=== PATIENT | female | born 1990 | race Caucasian/White ===

== ENCOUNTER 2018-10-25 19:00 | Inpatient (IN) | payer MEDICAID ==
[~2018-10-25] VITALS: Ht 162.6 cm; Wt 85.8 kg
--- NOTE | 2018-10-25 18:40 | NUR ---
SARAH OWEN presented to unit via AMBULATORY from ED, accompanied by S/O, with c/o INDUCTION. SARAH OWEN weighed, gowned, voided, and to bed. EFHM and TOCO applied, VS taken. SARAH OWEN oriented to bed controls, call light, TV, heat, and A/C controls.
[2018-10-25 19:15] VITALS: BP 129/84
[2018-10-25] MEDS ORDERED: D5 LR IV SOLUTION 1,000 ML IV ONE (19:16)
[2018-10-25] MEDS ORDERED: LACTATED RINGERS 1,000 ML IV SCH (19:51)
[2018-10-25] MEDS ORDERED: MINERAL OIL CONCENTRATE 99.9% 15 ML UDC TOP PRN (20:00)
[2018-10-25] MEDS ORDERED: MISOPROSTOL 100 MCG (CYTOTEC) TAB PV SCH (20:00)
[2018-10-25] MEDS ORDERED: TERBUTALINE INJ 1 MG/ML (BRETHINE) AMP SC PRN (20:00)
[2018-10-25] MEDS: D5 LR IV SOLUTION 1,000 ML IV SCH (20:14)
[2018-10-25 20:28] LABS: BASOPHILS % (AUTO) 0 % (0-10); EOSINOPHILS # (AUTO) 0.2 10^3/uL (0.0-0.3); EOSINOPHILS % (AUTO) 2 % (0-10); HEMATOCRIT 32 % (35-52); HEMOGLOBIN 10.7 G/DL (11.5-16.0); LYMPHOCYTES # (AUTO) 2.1 X 10^3 (1.0-4.0); LYMPHOCYTES % (AUTO) 20 % (12-44); MEAN CORPUSCULAR HEMOGLOBIN 30 PG (25-34); MEAN CORPUSCULAR HGB CONC 34 G/DL (32-36); MEAN CORPUSCULAR VOLUME 89 FL (80-99); MEAN PLATELET VOLUME 10.9 FL (7.4-10.4); MONOCYTES # (AUTO) 0.7 X 10^3 (0.0-1.0); MONOCYTES % (AUTO) 7 % (0-12); NEUTROPHILS # (AUTO) 7.4 X 10^3 (1.8-7.8); NEUTROPHILS % (AUTO) 71 % (42-75); PLATELET COUNT 184 10^3/uL (130-400); RED CELL DISTRIBUTION WIDTH 13.2 % (10.0-14.5); WHITE BLOOD COUNT 10.4 10^3/uL (4.3-11.0)
[2018-10-25 20:52] LABS: BUN/CREATININE RATIO 11; CALCIUM 9.1 MG/DL (8.5-10.1); CARBON DIOXIDE 17 MMOL/L (21-32); CHLORIDE 109 MMOL/L (98-107); CREATININE SERUM 0.71 MG/DL (0.60-1.30); GFR ESTIMATED > 60; GLUCOSE 114 MG/DL (70-105); MAGNESIUM 1.6 MG/DL (1.8-2.4); POTASSIUM 3.4 MMOL/L (3.6-5.0); SODIUM 137 MMOL/L (135-145)
[2018-10-25 21:00] VITALS: BP 111/75
[2018-10-25 21:30] VITALS: BP 139/83
[2018-10-25 22:30] VITALS: BP 114/69
[2018-10-25 23:30] VITALS: BP 111/69
[2018-10-26] VITALS (64 sets, daily range): BP systolic 105–149; BP diastolic 55–90
[2018-10-26] MEDS ORDERED: fentaNYL INJECTION 100 MCG/2 ML AMP ONE ×2 (03:18→08:21)
[2018-10-26] MEDS: D5 LR IV SOLUTION 1,000 ML IV SCH ×2 (03:27→12:30)
[2018-10-26] MEDS: fentaNYL INJECTION 100 MCG/2 ML AMP IVP PRN ×2 (03:28→06:07)
[2018-10-26] MEDS ORDERED: OXYTOCIN/NORMAL SALINE 500 ML IV SCH ×2 (05:00→16:25)
[2018-10-26] MEDS ORDERED: LEVO50TA6 PO (07:00)
[2018-10-26] MEDS ORDERED: PREN-8 PO (07:01)
[2018-10-26] MEDS ORDERED: LACTATED RINGERS 1,000 ML IV ONE (07:05)
[2018-10-26] MEDS ORDERED: SUFENTA 0.6MCG/ML BUPIVA 0.125 100 ML ONE (07:57)
[2018-10-26] MEDS ORDERED: BUPIVACAINE 0.25% 30 ML (SENSORCAINE) VIAL ONE (08:20)
--- NOTE | 2018-10-26 13:10 | Labor Progress Note ---
Labor Progress Note Labor Progress Note Date Seen by Provider: Oct 26, 2018 Time Seen by Provider: 10:00 AROM Barbara @ 1002 SVE: 75/-1 Plan: Continue with expectant management Epidural for pain control Vitals - Labs Vital Signs - I&O Vital Signs Date Time Temp Pulse Resp B/P (MAP) Pulse Ox O2 Delivery O2 Flow Rate FiO2 10/26/18 12:30 81 18 126/79 (95) 99 Room Air 10/26/18 12:15 83 18 130/80 (97) 100 Room Air 10/26/18 12:00 79 18 126/76 (93) 96 Room Air 10/26/18 11:45 67 18 123/72 (89) 96 Room Air 10/26/18 11:30 63 18 134/90 (105) 100 Room Air 10/26/18 11:15 68 18 129/85 (100) 100 Room Air 10/26/18 11:00 68 18 116/72 (87) 99 Room Air 10/26/18 10:45 66 18 124/85 (98) 99 Room Air 10/26/18 10:30 61 18 116/76 (89) 99 Room Air 10/26/18 10:15 65 18 119/77 (91) 97 Room Air 10/26/18 10:00 72 18 113/67 (82) 99 Room Air 10/26/18 09:45 65 18 115/66 (82) 98 Room Air 10/26/18 09:30 62 18 112/71 (85) 97 Room Air 10/26/18 09:25 65 18 110/71 (84) 98 Room Air 10/26/18 09:20 65 16 112/73 (86) 97 Room Air 10/26/18 09:15 70 16 110/67 (81) 96 Room Air 10/26/18 09:10 72 16 111/66 (81) 96 Room Air 10/26/18 09:05 77 18 124/68 (86) 97 Room Air 10/26/18 09:00 78 18 115/69 (84) 97 Room Air 10/26/18 08:55 77 18 117/67 (84) 97 Room Air 10/26/18 08:50 72 18 121/65 (83) 97 Room Air 10/26/18 08:45 76 18 126/74 (91) 98 Room Air 10/26/18 08:40 74 18 124/75 (91) 98 Room Air 10/26/18 08:30 105 18 135/81 (99) 98 Room Air 10/26/18 08:15 98.1 76 18 125/76 (92) 100 Room Air 10/26/18 08:00 71 18 138/82 (100) 99 Room Air 10/26/18 07:45 71 18 138/82 (100) 99 Room Air 10/26/18 07:15 77 18 130/83 (99) 99 Room Air 10/26/18 07:00 75 18 119/84 (96) 99 Room Air 10/26/18 06:45 66 18 120/74 (89) 98 Room Air 10/26/18 06:30 70 18 128/71 (90) 99 Room Air 10/26/18 06:15 86 18 130/75 (93) 99 Room Air 10/26/18 06:00 72 18 127/84 (98) 99 Room Air 10/26/18 05:45 86 18 120/83 (95) 100 Room Air 10/26/18 05:30 59 18 115/74 (88) 99 Room Air 10/26/18 05:15 64 18 125/77 (93) 99 Room Air 10/26/18 05:00 67 18 129/88 (102) 99 Room Air 10/26/18 04:40 97.9 64 18 124/77 (93) Room Air 10/26/18 03:55 78 18 123/75 (91) Room Air 10/26/18 03:10 75 18 135/84 (101) Room Air 10/26/18 02:30 74 18 122/78 (93) Room Air 10/26/18 01:40 63 18 111/70 (84) Room Air 10/26/18 00:55 98.0 66 18 127/76 (93) Room Air 10/26/18 00:10 66 18 120/75 (90) Room Air 10/25/18 23:30 90 18 111/69 (83) Room Air 10/25/18 22:30 67 18 114/69 (84) Room Air 10/25/18 21:30 77 18 139/83 (101) Room Air 10/25/18 21:00 74 18 111/75 (87) Room Air 10/25/18 19:15 98.3 83 18 129/84 (99) Room Air Labs Laboratory Tests 10/25/18 20:06: White Blood Count 10.4, Red Blood Count 3.58L, Hemoglobin 10.7L, Hematocrit 32L, Mean Corpuscular Volume 89, Mean Corpuscular Hemoglobin 30, Mean Corpuscular Hemoglobin Concent 34, Red Cell Distribution Width 13.2, Platelet Count 184, Mean Platelet Volume 10.9H, Neutrophils (%) (Auto) 71, Lymphocytes (%) (Auto) 20, Monocytes (%) (Auto) 7, Eosinophils (%) (Auto) 2, Basophils (%) (Auto) 0, Neutrophils # (Auto) 7.4, Lymphocytes # (Auto) 2.1, Monocytes # (Auto) 0.7, Eosinophils # (Auto) 0.2, Basophils # (Auto) 0.0, Sodium Level 137, Potassium Level 3.4L, Chloride Level 109H, Carbon Dioxide Level 17L, Anion Gap 11, Blood Urea Nitrogen 8, Creatinine 0.71, Estimat Glomerular Filtration Rate > 60, BUN/Creatinine Ratio 11, Glucose Level 114H, Calcium Level 9.1, Magnesium Level 1.6L SUSHMA CARL MD Oct 26, 2018 13:10
[2018-10-26] MEDS ORDERED: PROMETHAZINE INJ 25 MG/ML (PHENERGAN) AMP ONE (14:57)
[2018-10-26] MEDS ORDERED: PROMETHAZINE INJ 25 MG/ML (PHENERGAN) AMP IVP NR (15:00)
--- NOTE | 2018-10-26 15:00 | History & Physical-OB ---
OB - Chief Complaint & HPI Date/Time Date of Admission: Date of Admission: Oct 25, 2018 at 19:00 Date seen by a Provider: Oct 26, 2018 Time Seen by a Provider: 12:00 Chief Complaint/History OB-Reason for Admission/Chief: Induction of Labor Hx : 2 Hx Para: 1 Expected Date of Delivery: Nov 08, 2018 Gestational Age in Weeks: 38 Gestational Age in Days: 1 Indication for induction: medical complication Admission Nurse Assessment Rev: Yes Allergies and Home Medications Allergies Coded Allergies: No Known Drug Allergies (Unverified , 10/25/18) Home Medications Levothyroxine Sodium 50 Mcg Tablet, 50 MCG PO DAILY, (Reported) Patient Home Medication List Home Medication List Reviewed: Yes OB - History Hx of Present Care: Yes Ultrasounds: Normal mid trimester US Obstetrical Complications: None Medical Complications: Cardiovascular (SVT ) Delivery History Adverse Rxn to Tranfusion: No Patient Past Medical History previously healthy;except for SVT during first that had to be cardioverted in ED. Social History/Family History Alcohol Use: Denies Use Recreational Drug Use: No OB - Admission Exam Physical Exam Vitals: Vital Signs 10/26/18 10/26/18 08:15 13:45 Temp 98.1 Pulse 82 Resp 18 B/P (MAP) 109/55 (73) Pulse Ox 99 O2 Delivery Room Air HEENT: NCAT Heart: Rhythm Normal Lungs: Clear Abdomen: Gravid Extremities: Normal Reflexes: Normal Cervical Dilatation: 9cm Effacement: 100% Station: 0 Membranes: Ruptured Amniotic Fluid: Clear Heart Rate: 140's Accelerations: No Accelerations Decelerations: Late Decelarations Short Term Variability: Present Skilled Nursing Variability: Average (6-25) Contractions on Admission: < 5 Minutes Apart Labs Laboratory Tests Test 10/25/18 20:06 Range/Units White Blood Count 10.4 4.3-11.0 10^3/uL Red Blood Count 3.58 L 4.35-5.85 10^6/uL Hemoglobin 10.7 L 11.5-16.0 G/DL Hematocrit 32 L 35-52 % Mean Corpuscular Volume 89 80-99 FL Mean Corpuscular Hemoglobin 30 25-34 PG Mean Corpuscular Hemoglobin Concent 34 32-36 G/DL Red Cell Distribution Width 13.2 10.0-14.5 % Platelet Count 184 130-400 10^3/uL Mean Platelet Volume 10.9 H 7.4-10.4 FL Neutrophils (%) (Auto) 71 42-75 % Lymphocytes (%) (Auto) 20 12-44 % Monocytes (%) (Auto) 7 0-12 % Eosinophils (%) (Auto) 2 0-10 % Basophils (%) (Auto) 0 0-10 % Neutrophils # (Auto) 7.4 1.8-7.8 X 10^3 Lymphocytes # (Auto) 2.1 1.0-4.0 X 10^3 Monocytes # (Auto) 0.7 0.0-1.0 X 10^3 Eosinophils # (Auto) 0.2 0.0-0.3 10^3/uL Basophils # (Auto) 0.0 0.0-0.1 10^3/uL Sodium Level 137 135-145 MMOL/L Potassium Level 3.4 L 3.6-5.0 MMOL/L Chloride Level 109 H 98-107 MMOL/L Carbon Dioxide Level 17 L 21-32 MMOL/L Anion Gap 11 5-14 MMOL/L Blood Urea Nitrogen 8 7-18 MG/DL Creatinine 0.71 0.60-1.30 MG/DL Estimat Glomerular Filtration Rate > 60 BUN/Creatinine Ratio 11 Glucose Level 114 H 70-105 MG/DL Calcium Level 9.1 8.5-10.1 MG/DL Magnesium Level 1.6 L 1.8-2.4 MG/DL OB - Assessment/Plan/Diagnosis Assessment Assessment: induction of labor Admission Dx Induction of labor at 38 weeks Admission Status: Inpatient Order (span 2 midnights) Reason for Inpatient Admission: Induction of labor at 38 1/7 wga for SVT. Plan Plan: Induction Induction Method: per Pitocin Protocol GINI CARTER MD Oct 26, 2018 15:00
--- NOTE | 2018-10-26 16:13 | NUR ---
spontaneous vaginal delivery of intact placenta by dr green. pitocin increased to 999ml/hr per dr lutz. dr green performing fundal massage. EBL [address] green.
--- NOTE | 2018-10-26 16:16 | NUR ---
bottom of labor bed replaced assisted out of stirrups. s/o at bedside.
--- NOTE | 2018-10-26 16:20 | NUR ---
pericare performed by this RN , june to perineum. 1621 epidural out tip intact. 1625 fundal massage performed ffu/1-2 moderate flow no clots expressed. 1627 repositioned to high fowlers. 1629 new gown on. reviewed diet order.
--- NOTE | 2018-10-26 16:25 | OB Labor & Delivery Record ---
Vag Delivery Note Vag Delivery Note Date of Delivery: 10/26/18 Preoperative Diagnosis: Gina Meyers is a (27 /Para 2 / 1, Gestational Age (wks)38with [1 day] Postoperative Diagnosis: Same Surgeon: GINI CARTER Swatch Paster: [] Anesthesia: [epidural] Delivery Type: [] Findings: [] Viable [male] infant, apgars [], weight [6 pounds 15 ounces] Lacerations: Intact placenta with 3 vessel cord. No nuchal cord, body cord or shoulder dystocia Estimated Blood Loss: [350] ml Complications: None Condition: Stable Description of Procedure: The patient is a 27 year old female who presented [for induction of labor]. She was admitted and informed consent was obtained. Her labor course was remarkable for [delayed 1st stage] She progressed to complete dilatation and began to push. She was then set up for delivery. The 's head was delivered atraumatically in the [OA] position. The shoulders and remainder of the infant's body were then delivered without difficulty. Upon delivery, the head was held below the level of the perineum and the mouth and nares were bulb suctioned. The cord was doubly clamped and cut after 60 seconds and placed on maternal abdomen. An intact placenta with 3-vessel cord delivered via Mario and there was found to be minimal bleeding.~ Vigorous fundal massage was performed and the fundus was found to be firm. IV oxytocin was given. Examination of the vagina and perineum revealed no lacerations. Following the repair, sponge, instrument and needle counts were correct. Mom and baby were both in stable condition in the labor suite. Vitals - Labs Vital Signs - I&O Vital Signs Date Time Temp Pulse Resp B/P (MAP) Pulse Ox O2 Delivery O2 Flow Rate FiO2 10/26/18 15:15 64 18 148/74 (98) Room Air 10/26/18 15:00 75 18 131/78 (95) 99 Room Air 10/26/18 14:45 85 18 119/82 (94) 99 Room Air 10/26/18 14:30 78 18 122/76 (91) 99 Room Air 10/26/18 14:15 78 18 125/82 (96) 100 Room Air 10/26/18 14:00 99.4 87 18 118/70 (86) 99 Room Air 10/26/18 13:45 82 18 109/55 (73) 99 Room Air 10/26/18 13:30 76 18 108/55 (72) 99 Room Air 10/26/18 13:15 88 18 114/60 (78) 99 Room Air 10/26/18 13:00 84 18 117/87 (97) 98 Room Air 10/26/18 12:45 66 18 123/81 (95) 99 Room Air 10/26/18 12:30 81 18 126/79 (95) 99 Room Air 10/26/18 12:15 83 18 130/80 (97) 100 Room Air 10/26/18 12:00 79 18 126/76 (93) 96 Room Air 10/26/18 11:45 67 18 123/72 (89) 96 Room Air 10/26/18 11:30 63 18 134/90 (105) 100 Room Air 10/26/18 11:15 68 18 129/85 (100) 100 Room Air 10/26/18 11:00 68 18 116/72 (87) 99 Room Air 10/26/18 10:45 66 18 124/85 (98) 99 Room Air 10/26/18 10:30 61 18 116/76 (89) 99 Room Air 10/26/18 10:15 65 18 119/77 (91) 97 Room Air 10/26/18 10:00 72 18 113/67 (82) 99 Room Air 10/26/18 09:45 65 18 115/66 (82) 98 Room Air 10/26/18 09:30 62 18 112/71 (85) 97 Room Air 10/26/18 09:25 65 18 110/71 (84) 98 Room Air 10/26/18 09:20 65 16 112/73 (86) 97 Room Air 10/26/18 09:15 70 16 110/67 (81) 96 Room Air 10/26/18 09:10 72 16 111/66 (81) 96 Room Air 10/26/18 09:05 77 18 124/68 (86) 97 Room Air 10/26/18 09:00 78 18 115/69 (84) 97 Room Air 10/26/18 08:55 77 18 117/67 (84) 97 Room Air 10/26/18 08:50 72 18 121/65 (83) 97 Room Air 10/26/18 08:45 76 18 126/74 (91) 98 Room Air 10/26/18 08:40 74 18 124/75 (91) 98 Room Air 10/26/18 08:30 105 18 135/81 (99) 98 Room Air 10/26/18 08:15 98.1 76 18 125/76 (92) 100 Room Air 10/26/18 08:00 71 18 138/82 (100) 99 Room Air 10/26/18 07:45 71 18 138/82 (100) 99 Room Air 10/26/18 07:15 77 18 130/83 (99) 99 Room Air 10/26/18 07:00 75 18 119/84 (96) 99 Room Air 10/26/18 06:45 66 18 120/74 (89) 98 Room Air 10/26/18 06:30 70 18 128/71 (90) 99 Room Air 10/26/18 06:15 86 18 130/75 (93) 99 Room Air 10/26/18 06:00 72 18 127/84 (98) 99 Room Air 10/26/18 05:45 86 18 120/83 (95) 100 Room Air 10/26/18 05:30 59 18 115/74 (88) 99 Room Air 10/26/18 05:15 64 18 125/77 (93) 99 Room Air 10/26/18 05:00 67 18 129/88 (102) 99 Room Air 10/26/18 04:40 97.9 64 18 124/77 (93) Room Air 10/26/18 03:55 78 18 123/75 (91) Room Air 10/26/18 03:10 75 18 135/84 (101) Room Air 10/26/18 02:30 74 18 122/78 (93) Room Air 10/26/18 01:40 63 18 111/70 (84) Room Air 10/26/18 00:55 98.0 66 18 127/76 (93) Room Air 10/26/18 00:10 66 18 120/75 (90) Room Air 10/25/18 23:30 90 18 111/69 (83) Room Air 10/25/18 22:30 67 18 114/69 (84) Room Air 10/25/18 21:30 77 18 139/83 (101) Room Air 10/25/18 21:00 74 18 111/75 (87) Room Air 10/25/18 19:15 98.3 83 18 129/84 (99) Room Air Labs Laboratory Tests 10/25/18 20:06: White Blood Count 10.4, Red Blood Count 3.58L, Hemoglobin 10.7L, Hematocrit 32L, Mean Corpuscular Volume 89, Mean Corpuscular Hemoglobin 30, Mean Corpuscular Hemoglobin Concent 34, Red Cell Distribution Width 13.2, Platelet Count 184, Mean Platelet Volume 10.9H, Neutrophils (%) (Auto) 71, Lymphocytes (%) (Auto) 20, Monocytes (%) (Auto) 7, Eosinophils (%) (Auto) 2, Basophils (%) (Auto) 0, Neutrophils # (Auto) 7.4, Lymphocytes # (Auto) 2.1, Monocytes # (Auto) 0.7, Eosinophils # (Auto) 0.2, Basophils # (Auto) 0.0, Sodium Level 137, Potassium Level 3.4L, Chloride Level 109H, Carbon Dioxide Level 17L, Anion Gap 11, Blood Urea Nitrogen 8, Creatinine 0.71, Estimat Glomerular Filtration Rate > 60, BUN/C reatinine Ratio 11, Glucose Level 114H, Calcium Level 9.1, Magnesium Level 1.6L GINI CARTER MD Oct 26, 2018 16:25
[2018-10-26] MEDS ORDERED: BENZOCAINE/MENTHOL (DERMOPLAST) 56 ML CAN TP PRN (16:30)
[2018-10-26] MEDS ORDERED: TETANUS,DIPTH,PERTUSS P/F (BOOSTRIX) 0.5 ML VIAL IM ONE (16:30)
[2018-10-26] MEDS ORDERED: MEASLES,MUMPS,RUBELLA 1 EA INJ SQ ONE (16:30)
[2018-10-26] MEDS ORDERED: WITCH HAZEL(TUCKS) 40 EA JAR TOP PRN (16:30)
--- NOTE | 2018-10-26 16:50 | NUR ---
1st bag of pitocin infused. silvana nava rn at bedside assisting with .
--- NOTE | 2018-10-26 17:20 | NUR ---
2nd bag of pitocin infused. moderate flow no clots expressed. fundus 1/u and off to the right.
[2018-10-26] MEDS: DOCUSATE SODIUM 100 MG (COLACE) CAP PO SCH (20:13)
[2018-10-26] MEDS: IBUPROFEN 600 MG (MOTRIN) TAB PO SCH (20:13)
[2018-10-26] MEDS ORDERED: CATHETER FLUSH 10 ML SYR IV SCH (22:00)
[2018-10-27 00:35] VITALS: BP 108/67
[2018-10-27] MEDS: IBUPROFEN 600 MG (MOTRIN) TAB PO SCH ×3 (02:45→15:11)
[2018-10-27 04:45] VITALS: BP 115/77
--- NOTE | 2018-10-27 06:30 | NUR ---
Pt resting in bed with eyes closed.
[2018-10-27 06:59] LABS: BASOPHILS % (AUTO) 0 % (0-10); EOSINOPHILS # (AUTO) 0.2 10^3/uL (0.0-0.3); EOSINOPHILS % (AUTO) 1 % (0-10); HEMATOCRIT 30 % (35-52); HEMOGLOBIN 10.2 G/DL (11.5-16.0); LYMPHOCYTES # (AUTO) 2.3 X 10^3 (1.0-4.0); LYMPHOCYTES % (AUTO) 16 % (12-44); MEAN CORPUSCULAR HEMOGLOBIN 30 PG (25-34); MEAN CORPUSCULAR HGB CONC 34 G/DL (32-36); MEAN CORPUSCULAR VOLUME 89 FL (80-99); MEAN PLATELET VOLUME 11.5 FL (7.4-10.4); MONOCYTES % (AUTO) 7 % (0-12); NEUTROPHILS # (AUTO) 10.8 X 10^3 (1.8-7.8); NEUTROPHILS % (AUTO) 76 % (42-75); PLATELET COUNT 144 10^3/uL (130-400); RED CELL DISTRIBUTION WIDTH 13.1 % (10.0-14.5); WHITE BLOOD COUNT 14.4 10^3/uL (4.3-11.0)
[2018-10-27] MEDS: DOCUSATE SODIUM 100 MG (COLACE) CAP PO SCH (09:01)
--- NOTE | 2018-10-27 09:19 | Anesthesia-Regional Post-Op ---
Regional Patient Condition Mental Status: Alert, Oriented x3 Circulation: Same as Pre-Op Headache: Absent Sensation: Full Recovery Motor Block: Absent Post Op Complications Complications None Follow Up Care/Instructions Patient Instructions None needed. Anesthesia/Patient Condition Patient is doing well, no complaints, stable vital signs, no apparent adverse anesthesia problems. No complications reported per nursing. D/C home per [facility] Criteria: Yes WHIT CHONG CRNA Oct 27, 2018 09:19
--- NOTE | 2018-10-27 10:26 | Discharge Summary ---
Diagnosis/Chief Complaint Date of Admission Oct 25, 2018 at 19:00 Date of Discharge 10/27/2018 Admission Diagnosis Admission Diagnosis Term labor Discharge Diagnosis male infant Epidural AROM Discharge Summary-Simple/Stand Procedures Epidural Placement AROM Discharge Physical Examination Allergies: Coded Allergies: No Known Drug Allergies (Unverified , 10/25/18) Vitals & I&Os Vital Sign - Last 12Hours Date Time Temp Pulse Resp B/P (MAP) Pulse Ox O2 Delivery O2 Flow Rate FiO2 10/27/18 07:47 98.0 78 16 97 Room Air General Appearance: Alert, Oriented X3, Cooperative, No Acute Distress HEENT: Mucous Memb Moist/[place] Respiratory: Clear to Auscultation, Normal Air Movement Cardiovascular: Regular Rate, No Murmurs Abdominal: Normal Bowel Sounds, Soft, No Tenderness, No Masses, Other (Fundus palpated firm and below umbilicus) Extremities: No Edema, No Tenderness/Swelling Skin: No Rashes, No Breakdown Neuro: Normal Speech, Strength at 5/5 X4 Ext, Sensation Intact Psych/Mental Status: Mental Status NL, Mood NL Hospital Course Was the Problem List Reviewed?: Yes See final discharge diagnosis. Discussion & Recommendations 27 yo G2 now P2 delivered male via @ 38.1 wga. Discharge Condition at discharge stable Instructions to patient/family Please see electronic discharge instructions given to patient. Discharge Medications Reviewed and agree with Discharge Medication list on patient's Discharge Instruction sheet Clinical Quality Measures DVT/VTE Risk/Contraindication: Risk Factor Score Per Nursin RFS Level Per Nursing on Admit: 1=Low/No VTE PPX Copy Copies To 1: GINI CARTER MD, HOLLY R MD Oct 27, 2018 10:26
[2018-10-27] MEDS ORDERED: IBUP-844 PO (10:29)
--- NOTE | 2018-10-27 10:31 | Discharge Instructions ---
Discharge Inst-Women's Serv Depart Medications New, Converted or Re-Newed RX: Transmitted to Pharmacy New Medications: Ibuprofen (Ibu) 600 Mg Tablet 600 MG PO Q6HR, #90 TAB Continued Medications: Levothyroxine Sodium (Levothyroxine Sodium) 50 Mcg Tablet 50 MCG PO DAILY, TAB Vit W-Ca,Fe,FA(<1 mg) ( Formula) 1 Each Tablet 1 EACH PO, TAB Follow Up/Instructions Goal/Follow Up: Follow up with Dr Carter in 6 weeks Activity Activity: Activity as Tolerated Driving Instructions: You May Drive NO SMOKING: NO SMOKING Nothing Inside Vagina: No Douching, No [place], No Tampons Diet Discharge Diet: No Restrictions Symptoms to Report to : Bleeding Excessive, Fever Over 101 Degrees F, Pain/Pressure in Shoulder, Shortness of Breath For Any Problems or Questions: Contact Your Physician Copies To 1: GINI CARTER MD, HOLLY R MD Oct 27, 2018 10:31
[2018-10-27 15:14] VITALS: BP 116/82
--- NOTE | 2018-10-27 17:30 | NUR ---
Discharge and home care instructions given to pt. Pt received hard copies. Pt verbalized understanding and verified via signing signature page.
--- NOTE | 2018-10-27 17:40 | NUR ---
Pt discharged. To remain in room 307 as border mom as rianna was not discharge for elevated bili. All personal items remain with pt. Pt has Rx.
== END 2018-10-27 17:40 | disposition home or self-care (01) | DRG 806 ==
LOC: LDRP 19:00
PROVIDERS: ADMIT Family Medicine; ATTEND Family Medicine
PROC: 10E0XZZ Delivery of Products of Conception, External Approach (ICD-10-PCS; principal; 2018-10-26)
PROC: 3E033VJ Introduction of Other Hormone into Peripheral Vein, Percutaneous Approach (ICD-10-PCS; 2018-10-26)
DX: O99.42 Diseases of the circulatory system complicating childbirth (principal); I47.1 Supraventricular tachycardia; O63.0 Prolonged first stage (of labor); Z3A.38 38 weeks gestation of pregnancy; Z37.0 Single live birth
CPT/HCPCS: 36415; 80048; 83735; 85025; 86850; 86900; 86901